=== PATIENT | male | born 1945 ===

== ENCOUNTER 2017-12-14 14:46 | Outpatient (CLI) | payer OTHER ==
[~2017-12-14] VITALS: Ht 172.7 cm; Wt 76.7 kg
== END 2017-12-14 15:00 | disposition home or self-care (01) ==
LOC: OFIC 805 14:46
DX: H61.22 Impacted cerumen, left ear (principal); H90.3 Sensorineural hearing loss, bilateral; L71.8 Other rosacea

== ENCOUNTER 2024-08-09 14:22 | Outpatient (CLI) | payer OTHER | END 2024-08-09 14:39 | disposition home or self-care (01) | LOC: SONOGRAMA 14:22 | DX: M25.512 Pain in left shoulder (principal) ==